=== PATIENT | female | born 1990 | race Caucasian/White ===

== ENCOUNTER 2018-11-28 07:12 | Emergency (ER) | payer BC ==
[~2018-11-28] VITALS: Ht 167.6 cm; Wt 113.4 kg
[2018-11-28] MEDS ORDERED: FLUOXETINE HCL20 MG PO (07:32)
[2018-11-28] MEDS ORDERED: COZAAR25 MG PO (07:32)
[2018-11-28] MEDS ORDERED: ZOFRAN4 MG SL (09:53)
[2018-11-28] MEDS ORDERED: NORCO 5-325 TA1 EACH PO (09:53)
[2018-11-28] MEDS ORDERED: FLOMAX0.4 MG PO (09:53)
[2018-11-28] MEDS ORDERED: IBUPROFEN600 MG PO (09:53)
== END 2018-11-28 10:25 | disposition home or self-care (01) ==
LOC: ED 07:12
DX: N13.2 Hydronephrosis with renal and ureteral calculous obstruction (principal); F32.9 Major depressive disorder, single episode, unspecified; I10 Essential (primary) hypertension; Z79.899 Other long term (current) drug therapy
CPT/HCPCS: 74176; 80053; 81001; 83690; 84703; 85025; 96361; 96374; 96375; 99284-25; J1885; J2270; J2405; J7030

== ENCOUNTER 2020-07-30 16:15 | Inpatient (IN) | payer BC, OTHER ==
[~2020-07-30] VITALS: Ht 170.2 cm; Wt 101.8 kg
[~2020-07-30 16:15] MED LIST: COZAAR25 MG PO; FLOMAX0.4 MG PO; FLUOXETINE HCL20 MG PO; IBUPROFEN600 MG PO; NORCO 5-325 TA1 EACH PO; ZOFRAN4 MG SL
--- NOTE | 2020-07-31 13:22 | HP ---
[facility] [address] [place], [place] [address] Signed ADMISSION DATE: 07/30/2020 CHIEF COMPLAINT: Acute onset right abdominal pain. HISTORY OF PRESENT ILLNESS: Ms. Mahoney is a pleasant 29-year-old G0, P0 white female, who presents to the emergency department complaining of acute onset right lower quadrant pain. She reports that about 3 weeks ago, she had some right flank pain, that lasted 3 to 5 days, that radiated to her flank and toward her pelvis. It improved with a course of NSAIDs and some rest. She does not believe that she passed a kidney stone and denies dysuria or gross hematuria. Symptoms improved until last night when she developed body aches with cramping. She also reports alternating between being warm and cold and clammy. This afternoon, pain significantly increased to 10/10, pain on the right that radiates to her back and toward her pelvis. She has been afebrile with T-max at home 99.1 degrees. She does report change in her discharge over the past several weeks from yellow to perry/green. She reports increasingly irregular cycle and spotting over the past several weeks. She has a ParaGard in place, that has been there for approximately 10 years. She reports a history of chlamydia at age 19, status post test of cure. Nineteen lifetime partners with one current male partner. She reports a history of chronic bacterial vaginosis, but denies any other gynecologic issues. Denies abnormal stooling, dyschezia, blood in stools, or other GI complaints PAST MEDICAL HISTORY: 1. Hypertension. 2. Depression. PAST SURGICAL HISTORY: Wilson teeth. ALLERGIES: No known drug allergies. FAMILY HISTORY: No family history of breast or ovarian cancer. SOCIAL HISTORY: Smokes less than one-half pack per day. She is a social drinker. Denies recreational drugs or marijuana. She is an RN at [employer]. Electronically Signed By: ESTELLA EDEN DO 07/31/20 1322 PATIENT NAME: ALEKSANDER MAHONEY HISTORY AND PHYSICAL DATE OF : [birth year] REPORT #: [id number] PHYSICIAN: ESTELLA EDEN DO PCP: NALLELY BEAVER PA-C REPORT IS CONFIDENTIAL AND NOT TO BE RELEASED WITHOUT AUTHORIZATION [facility] [address] [place], [place] [address] Signed MEDICATIONS: 1. Losartan. 2. Fluoxetine. REVIEW OF SYSTEMS: Complete review of systems was performed and negative except per HPI. PHYSICAL EXAMINATION: VITAL SIGNS: Temp 99.5, pulse 98, respiratory rate 16, blood pressure 129/67. GENERAL: The patient is lying on her right side, appearing uncomfortable in a [facility]. She is accompanied by her partner. HEENT: She is normocephalic and atraumatic. NECK: Supple with trachea midline. No lymphadenopathy or masses. CHEST: Regular rate and rhythm. LUNGS: Clear to auscultation bilaterally. Normal respiratory effort. ABDOMEN: Slightly overweight, soft, nondistended, minimally tender to the right lower quadrant. No rebound or guarding or other peritoneal signs. EXTREMITIES: No edema. PELVIC: Normal external genitalia with normal clitoris, urethral meatus, bilateral Pineland's, and Bartholin's. She does have a clitoral dupree piercing. On speculum exam, normal vagina with excellent apical support. The cervix has vaishali purulence oozing from the os. The IUD strings are noted approximately 4 cm in length. Bimanual exam shows significant cervical motion tenderness consistent with PID. The uterus is quite tender to bimanual exam. Adnexa are tender, especially on the right side, however, no masses are appreciated; however, this exam is somewhat limited due to body habitus. LABORATORY DATA: WBCs 11.0, hemoglobin 10.7, and platelets 460. Sodium 136, potassium 3.4, chloride 104, CO2 of 24, BUN 11, creatinine 0.59, glucose 140, calcium 9.3. Urine; positive for trace ketones and leukocytes, no crystals noted. test negative. GC and chlamydia are pending. Trichomonas is negative. IMAGING: CT abdomen and pelvis shows a 6 mm nonobstructing left renal calculus with no hydronephrosis or hydroureter. Bowel shows abnormal appearance of the sigmoid colon adjacent to the right adnexa with wall thickening and surrounding soft tissue stranding in the retroperitoneum and along the pelvic sidewall. There is colonic diverticulosis. The appendix is normal in caliber. Abdominal lymph nodes show prominent large retroperitoneal lymph nodes. IUDs noted in normal position within the uterus. The right adnexa shows inflammation with soft tissue stranding within the retroperitoneum concerning for possible TOA. Pelvic ultrasound demonstrates 11.3 x 4.3 x 6.8 cm uterus with 6 mm endometrial stripe. 3.0 x 2.2 x 2.6 complex hypoechoic area Electronically Signed By: ESTELLA EDEN DO 07/31/20 1322 PATIENT NAME: ALEKSANDER MAHONEY HISTORY AND PHYSICAL DATE OF : [birth year] REPORT #: [id number] PHYSICIAN: ESTELLA EDEN DO PCP: NALLELY BEAVER PA-C REPORT IS CONFIDENTIAL AND NOT TO BE RELEASED WITHOUT AUTHORIZATION [facility] [address] [place], [place] [address] Signed in the left ovary consistent with hemorrhagic cyst, the right ovary 6.6 x 4.0 x 4.1. There is a small amount of complex free fluid adjacent to the right ovary. ASSESSMENT AND PLAN: Tubo-ovarian abscess versus pelvic inflammatory disease. The patient with cervical motion tenderness purulence, cervical discharge, and inflammation of the right adnexa. Certainly, she has a least pelvic inflammatory disease and risk factors concerning for possible early tubo-ovarian abscess. Given the significant morbidity associated with tubo-ovarian abscess, I recommended admission to [facility] for parental antibiotics. We reviewed regimens and recommended Unasyn 3 g IV every 6 hours plus doxycycline 100 mg IV every 12 hours. Anticipate the patient will remain on IV antibiotics for 48 to 72 hours with likely discharge home following on oral antibiotics. We did discuss the pelvic inflammatory disease in detail and risks of development of severe sepsis with tubo-ovarian abscess. We discussed that in this setting, surgical intervention may be indicated. However, this is unlikely at this time. Gonorrhea and chlamydia were obtained and pending at this time. Blood cultures were ordered prior to IV antibiotics. We will check CBC and BMP daily. The patient will be full diet and is low risk for venous thromboembolism. She is a smoker and we will provide nicotine replacement as needed. We will treat her pain with combination of NSAIDs and opioid analgesics. The IUD was removed after consents were signed in the emergency department without difficulty. We will discuss contraceptive options at her followup appointment. She is unsure if she would like to pursue fertility in the future. We did briefly discuss that pelvic inflammatory disease, especially tubo-ovarian abscess can cause some future difficulties with fertility, again which we will address in the future. The patient understands and agrees. All questions were answered to best of my ability to the patient's apparent satisfaction. Estella Eden DO JDW/MODL /[id number] Copies: Electronically Signed By: ESTELLA EDEN, DO 07/31/20 1322 PATIENT NAME: ALEKSANDER MAHONEY HISTORY AND PHYSICAL DATE OF : [birth year] REPORT #: [id number] PHYSICIAN: ESTELLA EDEN DO PCP: NALLELY BEAVER PA-C REPORT IS CONFIDENTIAL AND NOT TO BE RELEASED WITHOUT AUTHORIZATION [facility] [address] [place] [address] [place] [address] Signed ~ Electronically Signed By: ESTELLA EDEN, DO 07/31/20 1322 PATIENT NAME: ALEKSANDER MAHONEY HISTORY AND PHYSICAL DATE OF : [birth year] REPORT #: [id number] PHYSICIAN: ESTELLA EDEN DO PCP: NALLELY BEAVER PA-C REPORT IS CONFIDENTIAL AND NOT TO BE RELEASED WITHOUT AUTHORIZATION
--- NOTE | 2020-07-31 21:19 | PATH ---
[facility] [address] [facility] [place] [address] Signed ORDERING PHYSICIAN: Charity Benito MD PATIENT NAME: ALEKSANDER SARMIENTO GENDER: Renee : 1990 SPECIMEN(S): MOLECULAR PATHOLOGY RESULTS: SARS-CoV-2 Not Detected ADDITIONAL NOTES.: The [place] Fusion SARS-CoV-2 Assay is a multiplex real-time PCR (RT-PCR) in vitro diagnostic test intended for the qualitative detection of RNA from SARS-CoV-2 from individuals who meet COVID-19 clinical and/or epidemiological criteria. In general, SARS-CoV-2 RNA can be detected during the acute phase of infection. Positive results indicate the presence of SARS-CoV-2 RNA. Clinical correlation with patient history and other diagnostic information is necessary to determine patient infection status. Positive results do not rule out bacterial infection or co-infection with other viruses. Negative results do not preclude SARS-CoV-2 infection and should not be used as the sole basis for patient management decisions. Negative results must be combined with other clinical observations, patient history, and epidemiological information. The [place] Fusion SARS-CoV-2 Assay is not yet approved or cleared by the [place] FDA. When there are no FDA-approved or cleared tests available, and other criteria are met, FDA can make tests available under an emergency access mechanism called an Emergency Use Authorization (EUA). The EUA for this test is supported by the Advanced Registered Nurse of Health and Human Service's (HHS's) declaration that circumstances exist to justify the emergency use of in vitro diagnostics for the detection and/or diagnosis of the virus that causes COVID-19. This EUA will remain in effect for the duration of the COVID-19 declaration justifying emergency of IVDs, unless it is terminated or revoked by FDA, after which the test may no longer be used. The [place] Fusion SARS-CoV-2 Assay is for use only under EUA in US laboratories certified under the Clinical Laboratory Improvement Amendments of 1988 (CLIA) to perform high complexity tests. [employer] is certified under CLIA to perform high complexity PATIENT NAME: ALEKSANDER SARMIENTO PATHOLOGY DATE OF : [birth year] REPORT #: [id number] PHYSICIAN: MAX ROMERO PCP: NALLELY BEAVER PA-C REPORT IS CONFIDENTIAL AND NOT TO BE RELEASED WITHOUT AUTHORIZATION [address] [address] Signed clinical laboratory testing. PERFORMING LABORATORY.: Molecular testing was performed by [employer] [address] [place], [place] [address] [address] (Hollow Core Door Frame Assembler: Bebeto Becerra D.O.; CLIA#: [id number]) Diagnostician: System Interface Pathologist Electronically Signed 07/31/2020 Copies: ~ PATIENT NAME: ALEKSANDER SARMIENTO PATHOLOGY DATE OF : [birth year] REPORT #: [id number] PHYSICIAN: MAX ROMERO PCP: NALLELY BEAVER PA-C REPORT IS CONFIDENTIAL AND NOT TO BE RELEASED WITHOUT AUTHORIZATION
[2020-08-03] MEDS ORDERED: TUSSIN DM CLEA118 ML PO (11:56)
--- NOTE | 2020-08-05 15:36 | OR ---
[facility] [address] [facility] [place], [place] [address] Signed DATE OF OPERATION: 08/03/2020 SURGEON: Estella Eden DO PREOPERATIVE DIAGNOSIS: Right tubo-ovarian abscess. POSTOPERATIVE DIAGNOSES: 1. Right tubo-ovarian abscess. 2. Extensive pelvic and omental adhesions. PROCEDURES PERFORMED: 1. Laparoscopic extensive lysis of adhesions. 2. Laparotomy for continued lysis of adhesions and drainage of tubo-ovarian abscess. 3. Drain placement. SUPERVISOR CELL OPERATION: Carlos Galaviz MD. ANESTHESIA: General. ESTIMATED BLOOD LOSS: 50 mL. SPECIMENS: Cultures of abscess contents for anaerobic, aerobic, and fungal cultures. DRAINS: Luke drain placed in the right lower quadrant cul-de-sac. FINDINGS: Normal external genitalia with clitoral piercing noted. Continued purulent discharge from the cervix. On laparoscopy, normal liver and gallbladder. Moderate omental adhesions to the anterior abdominal wall. Filmy small bowel adhesions to the abdominal wall. Edematous uterus, sigmoid, and bilateral fallopian tubes. On laparotomy, left ovary identified and ovarian fossa was adherent to the ovary. No evidence of abscess in the left adnexa. Right ovary was unable to be identified due to adhesions of the right adnexa, sigmoid, and uterus. Large right tubo-ovarian abscess drained, cultured and copiously irrigated. The right fallopian tube is quite edematous. Electronically Signed By: ESTELLA EDEN DO 08/05/20 1536 PATIENT NAME: ALEKSANDER MAHONEY OPERATIVE REPORT DATE OF : [birth year] REPORT #: [id number] PHYSICIAN: ESTELLA EDEN DO PCP: NALLELY BEAVER PA-C REPORT IS CONFIDENTIAL AND NOT TO BE RELEASED WITHOUT AUTHORIZATION [facility] [address] [place], [place] [address] Signed COMPLICATIONS: None. INDICATIONS: Ms. Mahoney is a pleasant 29-year-old G0, P0 white female, who presented four days ago to ER complaining of acute onset of right lower quadrant pain after similar pain three weeks ago. Early imaging was suggestive of possible right adnexal inflammation versus TOA and on exam in the emergency department she had copious purulent material coming from the cervix. She was admitted and had no signs of sepsis or other indication for emergent surgery. She was placed on IV antibiotics, but after 72 hours of antibiotics, the patient made no real significant clinical improvement. Repeat CT of the pelivs shows clear RIGHT tuboovarian abscess 6.5cm in diameter. Interventional options were discussed including transfer to tertiary center for percutaneous drainage versus laparoscopy for additional surgical management. The patient desires local surgical intervention. Risks, benefits, and alternatives were discussed in detail with the patient. The patient understands and wished to proceed with the procedure. TECHNIQUE: The patient was taken to the operating room where time-out was performed to confirm correct patient and correct procedure. General anesthetic was reestablished. The patient was prepped and draped in the dorsal lithotomy position with her feet in Yellofin stirrups. ICPs were on and running. The patient did receive ampicillin, gentamicin and clindamycin for ongoing management of TOA and no additional antibiotics were required. The patient was administered heparin preoperatively. A weighted speculum was placed in the vagina after clitoral piercing was removed. The anterior lip of the cervix was grasped with an Allis clamp and the cervix was gently dilated using Hegar dilators. VCare uterine manipulator was placed. A Guadarrama catheter was inserted. Surgeon's gloves were changed and attention was turned to the abdomen. Infraumbilical infiltration of 0.25% Marcaine with epinephrine was performed and a 2 to 3 cm incision was made just below the umbilicus. Incision was carried down to the fascia. The fascia was grasped with hemostats, elevated, and incised using Metzenbaum scissors. The fascia was tagged superior and inferior with 0 Vicryl and the peritoneum was entered bluntly. S retractor was used and no adhesions were noted. A Rajendra port was then placed without difficulty and pneumoperitoneum established with low opening pressures. Survey of the abdomen and pelvis was then performed demonstrating a normal right upper quadrant. The pelvis shows omental adhesions to the abdominal wall from the umbilicus to the bladder. Small bowel was adherent to the anterior abdominal wall, but these adhesions were very filmy. 5 mm assist ports were placed in the right and left lower quadrant under direct visualization without complication. Filmy bowel adhesions were gently dissected using blunt dissection. LigaSure device was selected and used to take down omental adhesions to the anterior abdominal wall. The uterus and bilateral fallopian tubes were noted to Electronically Signed By: ESTELLA EDEN DO 08/05/20 1536 PATIENT NAME: ALEKSANDER MAHONEY OPERATIVE REPORT DATE OF : [birth year] REPORT #: [id number] PHYSICIAN: ESTELLA EDEN DO PCP: NALLELY BEAVER PA-C REPORT IS CONFIDENTIAL AND NOT TO BE RELEASED WITHOUT AUTHORIZATION [address] [address] Signed be very edematous appearing, but tissue was viable. The sigmoid is densely adherent to bilateral adnexa and the uterus. Careful dissection was performed using hydrodissection and Kittner. General Surgery was called and requested to consult intraoperatively. Dr. Thomas recommended conversion to laparotomy. The RIGHT fallopian tube was noted to be quite edematous and it was felt that this likely represented the location of the tuboovarian abscess. Decision was made to attempt drainage of this. Sonicision was used to perform linear salpingostomy of the RIGHT fallopian tube, however no purulent material was noted and the fallopian tube was noted to be quite edematous. At this point decision was made to convert to a laparotomy for continued lysis of adhesions as minimal progress is being able to be made laparoscopically. The trocars were removed. Umbilical fascia was repaired using 0 Vicryl in a running nonlocked manner. Stay sutures were reapproximated to reinforce umbilical incision. Skin was reapproximated using 4-0 Monocryl. Pfannenstiel skin incision was then made and carried down to the fascia in the midline. Fascia was nicked using surgical scalpel and fascial incision was extended bilaterally using curved Donahue scissors. Fascia was grasped with Cynthia's, elevated, and the underlying rectus muscles dissected bluntly and sharply. The rectus muscles were divided in the midline bluntly and the peritoneum was grasped with hemostats, elevated and entered sharply. Peritoneal incision was extended cephalad caudad using blunt dissection. An Asa retractor was placed. The small bowel was packed using moistened lap sponges and attention was turned to the uterus and sigmoid. On palpation, the uterus and sigmoid are extremely edematous with dense adhesions between the two. Careful blunt dissection was performed freeing the left ovary from the sigmoid. No evidence of left tubo-ovarian abscess or other infectious process in the left adnexa was identified. The right adnexum was attempted to be carefully dissected using blunt dissection, but sigmoid, uterus and right adnexa were too densely adherent to safely continue with blunt dissection. The right tubo-ovarian abscess, however, was able to be identified and entered bluntly, draining copious amounts of purulent material. This was cultured for anaerobes, aerobes, and fungi. The abscess was copiously irrigated with 6 L of warm saline. No additional purulent material or other abscess cavities were noted. The right ovary was never able to be identified completely due to dense adhesions. A 10 mm Luke drain was then placed into the cul-de-sac across the right adnexa. The tubing was brought through the right cyst port site and secured with nylon suture. The Asa retractor was removed. Peritoneum was reapproximated using 2-0 Vicryl in a running nonlocked manner. Rectus was reapproximated using 0 Vicryl and three interrupted sutures of 0 Vicryl. Fascia was reapproximated using 0 Vicryl in a running nonlocked manner. Subcu was copiously irrigated and reapproximated using 3-0 Vicryl in a running nonlocked manner. Skin was reapproximated using surgical ger. The VCare uterine manipulator was removed and the patient was taken to the PACU in good and stable condition. Sponge, needle, and instrument count was correct x2 at the end of the procedure. Dr. Galaviz was present and participated in all portions of the procedure. Electronically Signed By: ESTELLA EDEN DO 08/05/20 1536 PATIENT NAME: ALEKSANDER MAHONEY OPERATIVE REPORT DATE OF : [birth year] REPORT #: [id number] PHYSICIAN: ESTELLA EDEN DO PCP: NALLELY BEAVER PA-C REPORT IS CONFIDENTIAL AND NOT TO BE RELEASED WITHOUT AUTHORIZATION [address] [address] Signed Estella Eden DO JDW/MODL /[id number] Copies: ~ Electronically Signed By: ESTELLA EDEN DO 08/05/20 1536 PATIENT NAME: ALEKSANDER MAHONEY OPERATIVE REPORT DATE OF : [birth year] REPORT #: [id number] PHYSICIAN: ESTELLA EDEN DO PCP: NALLELY BEAVER PA-C REPORT IS CONFIDENTIAL AND NOT TO BE RELEASED WITHOUT AUTHORIZATION
[2020-08-07] MEDS ORDERED: LEVOFLOXACIN500 MG PO (10:07)
[2020-08-07] MEDS ORDERED: FLAGYL500 MG PO (10:07)
[2020-08-07] MEDS ORDERED: IBU800 MG PO (10:08)
[2020-08-07] MEDS ORDERED: NORCO 5-325 TA1 EACH PO (10:08)
== END 2020-08-07 11:05 | disposition home or self-care (01) | DRG 742 ==
LOC: ED 16:15 → MS 21:40
PROVIDERS: ADMIT Obstetrics & Gynecology; ATTEND Obstetrics & Gynecology
PROC: 0UPDXHZ Removal of Contraceptive Device from Uterus and Cervix, External Approach (ICD-10-PCS; 2020-07-30)
PROC: 3E0T3BZ Introduction of Anesthetic Agent into Peripheral Nerves and Plexi, Percutaneous Approach (ICD-10-PCS; 2020-08-03)
PROC: 0U950ZZ Drainage of Right Fallopian Tube, Open Approach (ICD-10-PCS; principal; 2020-08-03 11:24)
PROC: 0DNU4ZZ Release Omentum, Percutaneous Endoscopic Approach (ICD-10-PCS; 2020-08-03 11:24)
PROC: 0U900ZZ Drainage of Right Ovary, Open Approach (ICD-10-PCS; 2020-08-03 11:24)
PROC: 0DNU0ZZ Release Omentum, Open Approach (ICD-10-PCS; 2020-08-03 11:24)
PROC: 3E02340 Introduction of Influenza Vaccine into Muscle, Percutaneous Approach (ICD-10-PCS; 2020-08-07)
DX: N70.93 Salpingitis and oophoritis, unspecified (principal); N20.1 Calculus of ureter; Z20.828 Contact with and (suspected) exposure to other viral communicable diseases; N73.6 Female pelvic peritoneal adhesions (postinfective); G89.18 Other acute postprocedural pain; I10 Essential (primary) hypertension; F32.9 Major depressive disorder, single episode, unspecified; F17.210 Nicotine dependence, cigarettes, uncomplicated; Z53.31 Laparoscopic surgical procedure converted to open procedure; Z23 Encounter for immunization; Z30.432 Encounter for removal of intrauterine contraceptive device; Z79.899 Other long term (current) drug therapy; Z86.19 Personal history of other infectious and parasitic diseases
CPT/HCPCS: 00840; 36415; 64488; 72193; 74176; 76830; 76856; 76942; 80048; 80053; 80069; 80170; 81001; 83605; 84703; 85025; 86140; 87040; 87070; 87075; 87205; 87210; 87491; 87591; 90686; 94762; 96374; 96375; 96376; 99285-25; C9803; J0290; J0295; J0330; J0610; J1100; J1170; J1580; J1650; J1885; J2001; J2405; J2550; J2704; J3010; J3475; J3490; J7121